=== PATIENT | female | born 1995 | race Two or more races ===

== ENCOUNTER → 2024-03-17 | Outpatient (CLI) | payer BC, SELFPAY ==
[2024-03-17 09:30] LABS: Basophils % (Auto) 0 % (0-2.5); Eosinophils # (Auto) 0.1 Thou/mm3 (0.0-0.5); Eosinophils % (Auto) 1 % (0-10); Hemoglobin 13.4 g/dL (12.0-16.0); Immature Granulocytes % (Auto) 1 % (0-0); Immature Granulocytes Auto 0.07 Thou/mm3 (0.00-0.00); Lymphocytes % (Auto) 28 % (10-50); Mean Corpuscular HGB Conc 32.7 g/dl (31.0-37.0); Mean Corpuscular Hemoglobin 27.7 pg (25.0-35.0); Mean Corpuscular Volume 85 fL (80-100); Monocytes # (Auto) 0.5 Thou/mm3 (0.0-0.8); Monocytes % (Auto) 7 % (0-12); Neutrophils # (Auto) 4.4 Thou/mm3 (1.8-7.7); Neutrophils % (Auto) 63 % (37-80); Nucleated Red Blood Cell % 0 /100 WBC (0); Platelet Count 325 Thou/mm3 (140-440); RDW Standard Deviation 41.4 fL (36.4-46.3); Red Blood Count 4.84 Miln/mm3 (4.00-5.20); White Blood Count 7.1 Thou/mm3 (3.6-11.0)
[2024-03-17 09:51] LABS: Iron 80 mcg/dL (50-170)
[2024-03-17 09:59] LABS: Vitamin B12 420 pg/mL (211-911); Vitamin D 25 Hydroxy Total 14.8 ng/mL (7.3-40.2)
[2024-03-17 10:49] LABS: Alanine Aminotransferase 65 U/L (10-49); Albumin/Globulin Ratio 2.3 (1.2-2.2); Alkaline Phosphatase 86 U/L (46-116); Anion Gap 8 (7-16); Aspartate Amino Transferase 32 U/L (0-34); BUN/Creatinine Ratio 13 Ratio (12-20); Blood Urea Nitrogen 10 mg/dL (9-23); Calcium 10.1 mg/dL (8.3-10.6); Calcium (Corrected) 10.1 mg/dL (8.5-10.1); Carbon Dioxide 24.2 mMol/L (20.0-31.0); Chloride 106 mMol/L (98-107); Creatinine (Component) 0.8 mg/dL (0.6-1.3); Free T4 (Free Thyroxine) 1.18 ng/dL (0.89-1.76); Globulin 2.2 gm/dL (2.3-3.5); Glucose 103 mg/dL (74-106); Osmolality,Calculated 274 (275-295); Potassium 4.3 mMol/L (3.4-5.1); Sodium 138 mMol/L (136-145); Thyroid Stimulating Hormone 2.54 uIU/mL (0.55-4.78); Total Protein 7.2 gm/dL (5.7-8.2); eGFR > 60 See Note
[2024-03-17 14:48] LABS: Bilirubin,Total 0.4 mg/dL (0.3-1.2); Cardiac Risk Estimate 5.5 RATIO (3.7-5.6); Cholesterol 221 mg/dL (132-200); HDL Cholesterol 40 mg/dL (40-60); LDL Cholesterol,Calculated 140 mg/dL (0-130); Triglycerides 204 mg/dL (30-150)
[2024-03-17 16:08] LABS: Glucose Estimated Average 114 mg/dL (80-131); Hemoglobin A1C 5.6 % Hgb (4.8-6.0)
== END | disposition home or self-care (01) ==
LOC: COPL 08:52
PROVIDERS: PCP Internal Medicine; Referring Provider Internal Medicine; Visit Provider Internal Medicine
DX: Z00.00 Encounter for general adult medical examination without abnormal findings (principal); E55.9 Vitamin D deficiency, unspecified
CPT/HCPCS: 36415; 80053; 80061; 82306; 82607; 83036; 83540; 83735; 84439; 84443; 85025

== ENCOUNTER → 2024-04-03 | Outpatient (CLI) | payer BC, SELFPAY ==
--- NOTE | 2024-04-03 09:30 | XR_ITS ---
Examination: Abdomen sonogram, complete Date and time of exam: April 03, 2024 0945 hours INDICATIONS: Abnormal liver function tests on laboratory examination March 17, 2024. Technique: Multiple real-time grayscale transabdominal sonographic images of the abdomen have been obtained. Findings: Normal gallbladder Normal common bile duct 0.3 cm Pancreatic head 2.0 cm Aorta not enlarged Hepatomegaly 19.7 cm fatty liver no focal liver lesions Normal hepatopedal portal venous flow Patent IVC Right kidney 11.7 x 4.8 x 6.6 cm renal cortex 1.2 cm Left kidney 10.0 x 4.5 x 5.8 cm in the cortex 1.6 cm Moderate left renal parenchymal scar formation Spleen 9.4 cm IMPRESSION: Normal gallbladder Normal common bile duct Moderate hepatomegaly fatty liver Moderate left renal parenchymal scar formation
--- NOTE | 2024-04-03 10:00 | XR_ITS ---
Examination: Transvaginal ultrasound of the pelvis, complete Technique: Transvaginal sonographic images pelvis performed using mercer scale imaging Exam date and time: April 03, 2024 1007 hours INDICATIONS: Lower abdominal pain pelvic pain beginning 2015 history PCO S FINDINGS: Uterus 7.4 x 2.9 x 3.9 cm No uterine mass or intrauterine gestation Endometrial stripe 0.6 cm Right ovary 3.4 x 2.1 x 2.5 cm arterial flow small follicles Left ovary 3.5 x 1.9 x 2.4 cm arterial flow small follicles IMPRESSION: Negative examination.
== END | disposition home or self-care (01) ==
PROVIDERS: PCP Internal Medicine; Referring Provider Internal Medicine; Visit Provider Internal Medicine
DX: K76.0 Fatty (change of) liver, not elsewhere classified (principal); N28.89 Other specified disorders of kidney and ureter
CPT/HCPCS: 76700; 76830